=== PATIENT | male | born 1955 | race Caucasian/White ===

== ENCOUNTER → 2018-08-20 | Outpatient (CLI) | payer OTHER, SELFPAY ==
--- NOTE | 2018-08-20 11:10 | MRI_ITS ---
STUDY: MRI LEFT REARFOOT WITHOUT CONTRAST REASON FOR EXAM: Male, 63 years old. Left foot pain. Plantar fasciitis. TECHNIQUE: Standardized fat and water weighted pulse sequences were obtained in all 3 orthogonal planes. COMPARISON: None. FINDINGS: Subtle edema surrounds the plantar fascia insertion (sagittal image 12 series 4). Mild chronic plantar fascial thickening. Moderate-sized plantar spur. No plantar fascial tear. Severe noninsertional Achilles tendinosis with low-grade partial intrasubstance tearing (sagittal image 15 series 4/series 3 and axial image 27 series 6). Normal muscles of the midfoot/hindfoot. Small tibiotalar/subtalar joint fusion with focal posterior joint outpouching. Minimal soft tissue swelling. Normal posterior tibialis tendon. Normal flexor digitorum longus tendon. Normal flexor hallucis longus tendon. Normal peroneus longus and brevis tendons. Normal tibialis anterior tendon. Normal extensor hallucis longus tendon. Normal extensor digitorum longus tendons. Normal distal tibiofibular syndesmotic ligamentous complex. Mild chronic lateral ligamentous complex sprains without tear (axial image 27 series 6). Normal subtalar ligaments and sinus tarsi. Normal deltoid ligamentous complexes. Normal plantar calcaneonavicular (spring) ligament. Normal tibiotalar articulation. Normal talar dome. Normal subtalar articulations. Normal talonavicular articulation. Normal calcaneocuboid articulation. Mild navicular cuneiform joint arthrosis medially (axial image 19 series 5). Small cyst/erosion at the fifth metatarsal head. MRI/Lower Ext/No Jt/w/o IMPRESSION: Acute on chronic mild plantar fasciitis Severe noninsertional Achilles tendinosis with partial intrasubstance tear Mild chronic lateral ligament sprains Small tibiotalar/subtalar joint fusion with minimal soft tissue swelling Mild degenerative changes, as above Electronically Signed: Keven Franklin DO at 8:37 EDT Tel , Service support ,
== END | disposition home or self-care (01) ==
PROVIDERS: Family Provider Family Medicine; PCP Family Medicine; Referring Provider Podiatrist; Visit Provider Podiatrist
DX: M72.2 Plantar fascial fibromatosis (principal)
CPT/HCPCS: 73718

== ENCOUNTER → 2020-08-20 07:04 | Outpatient (CLI) | payer OTHER, SELFPAY ==
--- NOTE | 2020-08-20 07:45 | MRI_ITS ---
STUDY: MRI RIGHT ANKLE WITHOUT CONTRAST REASON FOR EXAM: Male, 65 years old. RIGHT ankle OA, valgus deformity x years TECHNIQUE: Standardized fat and water weighted pulse sequences were obtained in all 3 orthogonal planes. COMPARISON: None. FINDINGS: Normal subcutis adipose space. There is tenosynovitis of the posterior tibialis tendon sheath with an intrinsic normal tendon. There is tenosynovitis of the flexor digitorum longus tendon sheath, without a tendinosis or tendon tear. There is tenosynovitis of the flexor hallucis longus tendon sheath, with pooling of fluid in the [place] of [place], which may be acting as an entrapping lesion upon the plantar cutaneous nerves. There is a tenosynovitis of the peroneal tendons without a demonstrated tendon tear. Normal tibialis anterior tendon. Normal extensor hallucis longus tendon. Normal extensor digitorum longus tendons. Normal Achilles tendon and teno-osseous insertion. Normal plantar fascia. Normal plantar calcaneal tubercles. Normal intrinsic muscles of the rearfoot. Normal distal tibiofibular syndesmotic ligamentous complex. Normal lateral ligamentous complex. Normal subtalar ligaments and sinus tarsi. Normal deltoid ligamentous complexes. Normal plantar calcaneonavicular (spring) ligament. Moderate tibiotalar joint arthrosis with multiple erosions of a small joint effusion. Normal talar dome. Normal subtalar articulations. Normal talonavicular articulation. Normal calcaneocuboid articulation. Normal navicular-cuneiform articulations. MRI/Lower Ext Joint Only (Routine) IMPRESSION: 1. 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 2. Mild tenosynovitis of the flexor and peroneal tendons. Electronically Signed: Dave Matamoros MD at 14:21 EDT Tel , Service support ,
== END ==
PROVIDERS: PCP Family Medicine; Referring Provider Podiatrist; Visit Provider Podiatrist
DX: M19.071 Primary osteoarthritis, right ankle and foot (principal)
CPT/HCPCS: 73721

== ENCOUNTER 2020-08-25 03:21 | Emergency (ER) | payer OTHER, SELFPAY ==
[2020-08-25 03:22] VITALS: BP 160/90; PULSE 58; RESP 18; TEMP 35.7; O2SAT 98; BMI 34.2
--- NOTE | 2020-08-25 03:25 | EKG12_ITS ---
Test Reason : ABD PAIN Blood Pressure : / mmHG Vent. Rate : 054 BPM Atrial Rate : 054 BPM P-R Int : 202 ms QRS Dur : 128 ms QT Int : 436 ms P-R-T Axes : 020 051 010 degrees QTc Int : 413 ms Sinus bradycardia Right bundle branch block Abnormal ECG Confirmed by CELIA SUAZO, NIA ([id number]), video tape editor JED GRAVES ([id number]) on 08/29/2020 12:28:04 PM Referred By: JACQUELYN Confirmed By:NIA YANG MD
--- NOTE | 2020-08-25 03:25 | ED.VIS.GI ---
HPI HPI - GI History of Present Illness Chief Complaint: Abd Pain Informant: patient Narrative Narrative: Patient presents with epigastric abdominal pain. Symptoms started when he went to bed about 4-1/2 hours ago. He describes a dull, intense pain in the epigastric region. Does not radiate. He has had nausea without vomiting. He has had multiple bowel movements which he states are normal. He denies any dysuria or hematuria. He has had no issues with pain up until tonight. He ate chicken stirfry and a spinach salad for dinner this evening. He does have a history of GERD and a hiatal hernia. Tonight he tried Tums and Pepto-Bismol tablets without relief. He denies any history of abdominal surgeries. No recent fevers. He denies any pain in his back. No pain in the chest. [facility] OF [facility] Medical History GERD (gastroesophageal reflux disease) Hiatal hernia Home Medications beclomethasone dipropionate 2 mcg INHALATION BID 08/25/20 [History Last Taken Unknown] fluticasone propionate [Flonase] 1 spray INTRANASAL DAILY 08/25/20 [History Last Taken Unknown] levalbuterol tartrate 2 inh INHALATION Q6H PRN 08/25/20 [History Last Taken Unknown] lisinopril-hydrochlorothiazide 1 tab PO DAILY 08/25/20 [History Last Taken Unknown] montelukast 10 mg PO QHS 08/25/20 [History Last Taken Unknown] pantoprazole 40 mg PO DAILY 08/25/20 [History Last Taken Unknown] sucralfate [Carafate] 1 g PO TID #60 tab 08/25/20 [Rx Last Taken Unknown] Allergy/AdvReac Type Severity Reaction Status Date / Time No Known Allergies Allergy Verified 08/25/20 03:21 Social History Smoking Status: Never smoker ROS ROS ED Constitutional Constitutional ED: Denies chills or fever(s) Eyes Eyes: Denies blurry vision, change in vision or diplopia ENT ENT ED: Denies ear pain, rhinorrhea or sore throat Cardiovascular Cardiovascular: Denies chest pain or palpitations Respiratory/Chest Respiratory/Chest: Denies cough, dyspnea or sputum Gastrointestinal Gastrointestinal: Reports abdominal pain and nausea Genitourinary Genitourinary ED: Denies dysuria, hematuria or urinary frequency Musculoskeletal Musculoskeletal: Denies back pain or neck pain Integumentary Denies change in pigmentation or rash Neurologic Neurologic: Denies headache(s), numbness or weakness Psychiatric Psychiatric: Denies anxiety or depression Endocrine Endocrinology: Denies polydipsia or polyuria EXAM Physical Exam Const Vital Signs: 08/25/20 03:22 Temperature 96.3 F L Temperature Source Temporal Pulse Rate 58 L Respiratory Rate 18 Blood Pressure 160/90 H Blood Pressure Mean 113 Pulse Ox 98 Oxygen Delivery Method Room Air Positive well nourished and well developed General Appearance ED: well developed and NAD HEENT Reports moist mucous membranes normocephalic and atraumatic; Negative for tenderness Eyes PERRL and EOMs intact bilaterally Neck supple and no JVD Chest Wall Chest: Negative for tenderness Resp normal respiratory effort and clear to auscultation bilaterally Effort and Inspection: Negative for respiratory distress Cardio regular rate, regular rhythm and no murmurs Rate: regular rate Rhythm: regular rhythm GI non-distended Auscultation: normoactive bowel sounds Palpation: soft and tender epigastric; Negative for guarding or rigid Back/Spine no CVA tenderness and no thoracic nor lumbar tenderness Cervical Spine: Negative for cervical spine tenderness Extremity normal to inspection and full ROM General Extremety ED: Negative for tenderness Neuro oriented x3, CN's II-XII intact bilaterally and no sensory deficits noted Sensorium / Orientation: awake and alert Motor Exam: strength 5/5 throughout Psych mental status grossly normal Skin no rashes or lesions noted MDM MDM MDM Narrative Medical decision making narrative: Patient was given a GI cocktail. His laboratory studies are unremarkable except for a BUN of 21 and a glucose of 143. His troponin is normal. EKG was sinus rhythm with no ischemia. He was still having pain so I gave him morphine and Protonix. Upon reevaluation he is improving. This could be due to his hiatal hernia. At this time I do not feel he requires any imaging as his abdomen exam is soft and benign. I will give him Carafate to take at home. He will continue his home medications. He is going to call his doctor today for follow-up Lab Data Attestation: I reviewed the patient's lab results. Labs: Laboratory Results - last 24 hr 08/25/20 08/25/20 03:37 03:37 WBC 8.1 RBC 5.00 Hgb 14.7 Hct 44.9 MCV 89.8 MCH 29.4 MCHC 32.7 RDW Std Deviation 42.4 RDW Coeff of [place] 13.0 Plt Count 199 MPV 9.7 Immature Gran % (Auto) 0.500 Neut % (Auto) 76.9 H Lymph % (Auto) 14.2 L [place] % (Auto) 7.2 Eos % (Auto) 0.6 Baso % (Auto) 0.6 Absolute Neuts (auto) 6.2 Absolute Lymphs (auto) 1.15 Nucleated RBC % 0 Sodium 138 Potassium 3.7 Chloride 99 Carbon Dioxide 31.0 Anion Gap 8 BUN 21 H Creatinine 1.05 Estim Creat Clear Calc 73.39 Est GFR (MDRD) Af Amer 91 Est GFR (MDRD) Non-Af 76 BUN/Creatinine Ratio 20.0 Glucose 143 H Calcium 9.1 Total Bilirubin 0.30 AST 27 ALT 29 Alkaline Phosphatase 111 Troponin I < 0.015 Total Protein 7.3 Albumin 3.9 Globulin 3.4 Albumin/Globulin Ratio 1.1 Lipase 107 Discharge Plan Triage Chief Complaint: Abd Pain ED Provider: Landon Colby Dx/Rx/DC Orders Clinical Impression: Abdominal pain, acute, epigastric Instructions: ED Unknown Causes of Abdominal ... Prescriptions: New sucralfate [Carafate] 1 gram tablet 1 g PO TID Qty: 60 RF: 0 No Action beclomethasone dipropionate 80 mcg/actuation Aerosol 2 mcg INHALATION BID RF: 0 pantoprazole 40 mg Tablet,Delayed Release (Dr/Ec) 40 mg PO DAILY RF: 0 montelukast 10 mg Tablet 10 mg PO QHS RF: 0 lisinopril-hydrochlorothiazide 10-12.5 mg Tablet 1 tab PO DAILY RF: 0 fluticasone propionate [Flonase] 50 mcg/actuation [place],Suspension 1 spray INTRANASAL DAILY RF: 0 levalbuterol tartrate 45 mcg/actuation Hfa Aerosol Inhaler 2 inh INHALATION Q6H PRN (Reason: SOB) RF: 0 Primary Care Provider: Angus Wright Referrals: Angus Wright MD [Primary Care Provider] - Disposition Disposition: Home, self care
--- NOTE | 2020-08-25 03:28 | ED.RN ---
NO OLD EKGS IN MUSE
[2020-08-25] MEDS: Mag Hydrox/Al Hydrox/Simeth 30 ML UDC PO (03:32)
[2020-08-25 04:02] LABS: ALB/GLOB Ratio 1.1 RATIO (0.9-2.4); AST(SGOT) 27 U/L (15-37); Alanine Aminotransfer ALT/SGPT 29 U/L (16-61); Albumin, Serum 3.9 g/dL (3.2-5.0); Alkaline Phosphatase 111 U/L (45-117); Anion Gap 8 (5-15); BUN 21 mg/dL (7-18); Calcium,Total 9.1 mg/dL (8.5-10.1); Chloride 99 mmol/L (98-107); Creatinine, Serum 1.05 mg/dL (0.70-1.30); EST Glomerular Filtration Rate 76 mL/min (>60); Est Glom Filt Rate - Afr Amer 91 mL/min (>60); Estimated Creatinine Clearance 73.39 ml/min; Globulin 3.4 g/dL (2.2-4.2); Glucose 143 mg/dL (74-106); Lipase 107 U/L (73-393); Potassium 3.7 mmol/L (3.5-5.1); Protein, Total 7.3 g/dL (6.4-8.2); Sodium Level 138 mmol/L (136-145)
[2020-08-25 04:14] LABS: Absolute Lymphocyte Count 1.15 X10^3/uL (0.83-4.51); Absolute Neutrophil Count 6.2 X10^3/uL (2.0-7.7); Basophil# 0.05 X10^3/uL; Basophil% 0.6 % (0-1); Eosinophil# 0.05 X10^3/uL; Eosinophils% 0.6 % (0-5); Hematocrit 44.9 % (40-54); Hemoglobin 14.7 g/dL (13.0-16.5); Lymphocyte # 1.15 X10^3/ul (0.83-4.51); Lymphocyte % 14.2 % (19-41); Mean Corp Hgb Conc 32.7 g/dL (32-36); Mean Corpuscular Hgb 29.4 pg (27.0-32.0); Mean Corpuscular Volume 89.8 fL (80-94); Mean Platelet Vol. 9.7 fl (6.2-12.0); Monocyte# 0.58 X10^3/uL; Monocyte% 7.2 % (0-10); NRBC Flagged by Analyzer 0 % (0-5); Neutrophil # 6.23 X10^3/uL (2.7-7.7); Neutrophil % 76.9 % (47-70); Platelet Count 199 K/mm3 (150-450); RBC Distribution Width SD 42.4 fl (35.1-43.9); White Blood Count 8.1 K/mm3 (4.4-11.0)
[2020-08-25] MEDS: Morphine 4 MG/ML Syringe IV (04:32)
== END 2020-08-25 05:28 | disposition home or self-care (01) ==
PROVIDERS: Emergency Provider Emergency Medicine; PCP Family Medicine
DX: R10.13 Epigastric pain (principal); R11.0 Nausea; K44.9 Diaphragmatic hernia without obstruction or gangrene; K21.9 Gastro-esophageal reflux disease without esophagitis
CPT/HCPCS: 80053; 83690; 84484; 85025; 93005; 96365; 96375; 99283; J7030; A4216

== ENCOUNTER → 2022-08-28 | Outpatient (CLI) | payer BC, SELFPAY ==
[2022-08-28 09:03] VITALS: BP 127/82; PULSE 105; RESP 16; TEMP 36.8; O2SAT 96; BMI 33.7
== END | disposition home or self-care (01) ==
LOC: RAD 08:47
PROVIDERS: PCP Family Medicine; Referring Provider Internal Medicine Hematology & Oncology; Visit Provider Internal Medicine Hematology & Oncology
DX: C83.10 Mantle cell lymphoma, unspecified site (principal)
CPT/HCPCS: 36569